=== PATIENT | female | born 1955 | race Hispanic/Latino ===

== ENCOUNTER 2022-06-18 21:05 | Emergency (ER) | payer MEDICARE ==
[~2022-06-18] VITALS: Ht 157.5 cm; Wt 87.1 kg
[2022-06-18 21:50] LABS: BASOPHILS % (AUTO) 0.2 % (0.0-5.0); EOSINOPHILS % (AUTO) 0.9 % (0.0-8.0); HEMATOCRIT 36.5 % (36-48); LYMPHOCYTES % (AUTO) 33.2 % (21.0-51.0); MEAN CORPUSCULAR HEMOGLOBIN 28.5 pg (27.0-33.0); MEAN CORPUSCULAR HGB CONC 32.6 g/dL (32.0-36.0); MEAN CORPUSCULAR VOLUME 87.5 fL (79-99); MONOCYTES % (AUTO) 8.5 % (3.0-13.0); PLATELET COUNT (AUTO) 249 K/uL (130-400); RED BLOOD CELL COUNT(AUTO) 4.17 MIL/uL (4.00-5.50); RED CELL DISTRIBUTION WIDTH 15.6 % (11.0-15.5); WHITE BLOOD COUNT (AUTO) 8.6 K/uL (4.8-10.8)
[2022-06-18 21:53] LABS: APPEARANCE,URINE CLEAR (CLEAR); BILIRUBIN,URINE NEGATIVE (NEGATIVE); COLOR,URINE YELLOW (YELLOW); GLUCOSE, URINE (UA) NEGATIVE (NEGATIVE); KETONES,URINE NEGATIVE (NEGATIVE); LEUKOCYTE ESTERASE ,URINE NEGATIVE (NEGATIVE); NITRATE,URINE NEGATIVE (NEGATIVE); OCCULT BLOOD,URINE NEGATIVE (NEGATIVE); PROTEIN,URINE NEGATIVE (NEGATIVE); UROBILINOGEN,URINE 0.2 mg/dL (0.2-1.0)
[2022-06-18 22:00] LABS: CREATININE 1.2 mg/dL (0.5-1.5); POTASSIUM 4.2 mmol/L (3.5-5.1)
[2022-06-18] MEDS ORDERED: KETOROLAC 30MG VIAL (30MG/ML) IVP ONE (22:00)
[2022-06-18 22:04] LABS: ALBUMIN 3.4 g/dL (3.5-5.0); TOTAL PROTEIN, SERUM 7.8 g/dL (6.0-8.3)
[2022-06-18] MEDS ORDERED: IOHEXOL 350 MG/ML 100ML INFUS..BTL IV ONE (22:24)
[2022-06-19 00:06] VITALS: BP 142/58
[2022-06-19] MEDS ORDERED: NAPR500T6 PO (00:22)
== END 2022-06-19 00:34 | disposition home or self-care (01) ==
LOC: EDH 21:05
DX: N83.202 Unspecified ovarian cyst, left side (principal); R10.2 Pelvic and perineal pain; E11.9 Type 2 diabetes mellitus without complications; K21.9 Gastro-esophageal reflux disease without esophagitis; E78.00 Pure hypercholesterolemia, unspecified; I10 Essential (primary) hypertension; Z98.890 Other specified postprocedural states
CPT/HCPCS: 99285; 74177; 96374; 76856; 80053; 85025; 81003; 36415; J1885; Q9967

== ENCOUNTER 2022-08-05 15:07 | Emergency (ER) | payer MEDICARE ==
[~2022-08-05] VITALS: Ht 154.9 cm; Wt 88.5 kg
[~2022-08-05 15:07] MED LIST: NAPR500T6 PO
[2022-08-05 15:28] VITALS: BP 126/47
[2022-08-05] MEDS ORDERED: TRAM1TAB2 PO (16:05)
== END 2022-08-05 17:04 | disposition home or self-care (01) ==
LOC: EDH 15:07
DX: S82.101A Unspecified fracture of upper end of right tibia, initial encounter for closed fracture (principal); E11.9 Type 2 diabetes mellitus without complications; E78.00 Pure hypercholesterolemia, unspecified; I10 Essential (primary) hypertension; E66.01 Morbid (severe) obesity due to excess calories; Z68.36 Body mass index [BMI] 36.0-36.9, adult; Z79.1 Long term (current) use of non-steroidal anti-inflammatories (NSAID); W18.39XA Other fall on same level, initial encounter; Y93.89 Activity, other specified; Y92.89 Other specified places as the place of occurrence of the external cause; Y99.8 Other external cause status
CPT/HCPCS: 29505; 73562

== ENCOUNTER 2023-02-21 16:12 | Observation (INO) | payer MEDICARE ==
[~2023-02-21] VITALS: Ht 160 cm; Wt 86.9 kg
[~2023-02-21 16:12] MED LIST changes: +TRAM1TAB2 PO
[2023-02-21 16:40] LABS: BASOPHILS % (AUTO) 0.4 % (0.0-5.0); EOSINOPHILS % (AUTO) 0.6 % (0.0-8.0); HEMATOCRIT 33.1 % (36-48); LYMPHOCYTES % (AUTO) 29.2 % (21.0-51.0); MEAN CORPUSCULAR HEMOGLOBIN 27.9 pg (27.0-33.0); MEAN CORPUSCULAR HGB CONC 31.7 g/dL (32.0-36.0); MEAN CORPUSCULAR VOLUME 87.8 fL (79-99); MONOCYTES % (AUTO) 20.1 % (3.0-13.0); NEUTROPHILS % (AUTO) 49.3 % (40.0-77.0); PLATELET COUNT (AUTO) 196 K/uL (130-400); RED BLOOD CELL COUNT(AUTO) 3.77 MIL/uL (4.00-5.50); RED CELL DISTRIBUTION WIDTH 15.1 % (11.0-15.5); WHITE BLOOD COUNT (AUTO) 4.9 K/uL (4.8-10.8)
[2023-02-21 16:52] LABS: CREATININE 1.7 mg/dL (0.5-1.5); POTASSIUM 4.3 mmol/L (3.5-5.1)
[2023-02-21 16:58] LABS: ALBUMIN 2.8 g/dL (3.5-5.0); TOTAL PROTEIN, SERUM 6.5 g/dL (6.0-8.3)
[2023-02-21] MEDS ORDERED: 0.9%NACL 1000ML 1,000 ML IV ONE (19:00)
[2023-02-21] MEDS: 0.9%NACL 1000ML 1,000 ML IV SCH (19:30)
[2023-02-21] MEDS ORDERED: DEXTROSE 50%-WATER 50 ML DISP.SYRIN IV PRN (19:30)
[2023-02-21] MEDS ORDERED: 0.9%NACL 1000ML 1,000 ML IV SCH (19:30)
[2023-02-21] MEDS ORDERED: GLUCAGON 1MG KIT 1 MG ML IM PRN (19:30)
[2023-02-21] MEDS ORDERED: ACETAMINOPHEN 325 MG TAB PO PRN ×2 (19:30)
[2023-02-21] MEDS ORDERED: ONDANSETRON 4MG INJ IV PRN (19:30)
[2023-02-21] MEDS ORDERED: NITROGLYCERIN 0.4 MG SL TAB SL PRN (19:30)
[2023-02-21 20:08] LABS: MAGNESIUM 2.2 mg/dL (1.80-2.40); THYROID STIMULATING HORMONE 1.47 uIU/mL (0.36-3.74)
[2023-02-21 20:16] LABS: HEMOGLOBIN A1C 6.5 % (4.0-6.0)
[2023-02-21 20:17] LABS: APPEARANCE,URINE CLEAR (CLEAR); BILIRUBIN,URINE NEGATIVE (NEGATIVE); COLOR,URINE LIGHT-YELLOW (YELLOW); GLUCOSE, URINE (UA) NEGATIVE (NEGATIVE); KETONES,URINE NEGATIVE (NEGATIVE); LEUKOCYTE ESTERASE ,URINE NEGATIVE Leu/uL (NEGATIVE); NITRATE,URINE NEGATIVE (NEGATIVE); OCCULT BLOOD,URINE NEGATIVE (NEGATIVE); PROTEIN,URINE 20 mg/dL (NEGATIVE); UROBILINOGEN,URINE 0.2 mg/dL (0.2-1.0)
[2023-02-21 20:43] LABS: BACTERIA,URINE RARE /HPF (None Seen); RBC,URINE 0-1 /HPF (0-1); SQUAMOUS EPITHELIAL CELL,UR FEW /HPF (0-2)
[2023-02-21] MEDS: ASPIRIN 81 MG EC TAB PO SCH (20:43)
[2023-02-21] MEDS: INSULIN HUMULIN R 100 UNIT/ML 3ML SQ SCH ×2 (20:44→21:00)
[2023-02-21] MEDS ORDERED: OMEG-61 PO (22:01)
[2023-02-21] MEDS ORDERED: HYDR25TA PO (22:01)
[2023-02-21] MEDS ORDERED: SOLI5 PO (22:01)
[2023-02-21] MEDS ORDERED: ESOM40CA PO (22:01)
[2023-02-21] MEDS ORDERED: AEC81 PO (22:01)
[2023-02-21] MEDS ORDERED: DILT360C29 PO (22:01)
[2023-02-21] MEDS ORDERED: LISI40TA9 PO (22:01)
[2023-02-21] MEDS ORDERED: CALC-1220 PO (22:01)
[2023-02-21] MEDS ORDERED: ATOR40TA69 PO (22:01)
[2023-02-21] MEDS ORDERED: PREG75 PO (22:01)
[2023-02-21] MEDS ORDERED: FERR-72 PO (22:01)
[2023-02-21] MEDS ORDERED: METF-446 PO (22:03)
[2023-02-21] MEDS ORDERED: METF-444 PO (22:03)
[2023-02-21] MEDS ORDERED: INSU100I35 SQ ×2 (22:19)
[2023-02-21 22:30] VITALS: BP 158/64
[2023-02-21] MEDS: FAMOTIDINE 20MG TAB PO SCH (22:36)
[2023-02-22 04:31] VITALS: BP 136/50
[2023-02-22] MEDS: INSULIN HUMULIN R 100 UNIT/ML 3ML SQ SCH ×4 (05:02→20:18)
[2023-02-22] MEDS: 0.9%NACL 1000ML 1,000 ML IV SCH ×2 (05:02→17:14)
[2023-02-22 06:00] LABS: BASOPHILS % (AUTO) 0.2 % (0.0-5.0); EOSINOPHILS % (AUTO) 1.2 % (0.0-8.0); LYMPHOCYTES % (AUTO) 31.5 % (21.0-51.0); MEAN CORPUSCULAR HEMOGLOBIN 28.2 pg (27.0-33.0); MEAN CORPUSCULAR HGB CONC 31.9 g/dL (32.0-36.0); MEAN CORPUSCULAR VOLUME 88.3 fL (79-99); MONOCYTES % (AUTO) 15.6 % (3.0-13.0); NEUTROPHILS % (AUTO) 51.3 % (40.0-77.0); PLATELET COUNT (AUTO) 190 K/uL (130-400); RED BLOOD CELL COUNT(AUTO) 3.51 MIL/uL (4.00-5.50); RED CELL DISTRIBUTION WIDTH 15.1 % (11.0-15.5); WHITE BLOOD COUNT (AUTO) 4.9 K/uL (4.8-10.8)
[2023-02-22 06:32] LABS: ALBUMIN 2.6 g/dL (3.5-5.0); CREATININE 1.3 mg/dL (0.5-1.5); MAGNESIUM 1.9 mg/dL (1.80-2.40); POTASSIUM 3.7 mmol/L (3.5-5.1); TOTAL PROTEIN, SERUM 6.1 g/dL (6.0-8.3)
[2023-02-22 07:41] VITALS: BP 147/62
[2023-02-22] MEDS: ASPIRIN 81 MG EC TAB PO SCH (08:37)
[2023-02-22] MEDS: FAMOTIDINE 20MG TAB PO SCH (08:37)
[2023-02-22] MEDS: ENOXAPARIN SODIUM 30 MG/0.3 ML SQ SCH (08:38)
[2023-02-22 11:19] VITALS: BP 174/69
[2023-02-22 16:18] VITALS: BP 158/66
[2023-02-22] MEDS ORDERED: DILT360C29 PO (16:22)
[2023-02-22] MEDS: AMLODIPINE 5 MG TAB PO SCH (17:22)
[2023-02-22 19:50] VITALS: BP 158/56
[2023-02-22] MEDS ORDERED: ATORVASTATIN 40 MG TABLET PO SCH (21:00)
[2023-02-22] MEDS ORDERED: INSULIN HUMULIN 70/30 100 UNIT/ML 3ML SQ SCH (21:00)
[2023-02-22 23:16] VITALS: BP 146/57
[2023-02-23] MEDS: 0.9%NACL 1000ML 1,000 ML IV SCH ×3 (00:30→11:35)
[2023-02-23 03:43] VITALS: BP 149/60
[2023-02-23 06:03] LABS: BASOPHILS % (AUTO) 0.2 % (0.0-5.0); HEMATOCRIT 33.1 % (36-48); MEAN CORPUSCULAR HEMOGLOBIN 27.7 pg (27.0-33.0); MEAN CORPUSCULAR VOLUME 86.6 fL (79-99); MONOCYTES % (AUTO) 15.3 % (3.0-13.0); NEUTROPHILS % (AUTO) 45.3 % (40.0-77.0); PLATELET COUNT (AUTO) 225 K/uL (130-400); RED BLOOD CELL COUNT(AUTO) 3.82 MIL/uL (4.00-5.50); WHITE BLOOD COUNT (AUTO) 4.1 K/uL (4.8-10.8)
[2023-02-23] MEDS: INSULIN HUMULIN R 100 UNIT/ML 3ML SQ SCH ×4 (06:05→16:35)
[2023-02-23 06:19] LABS: ALBUMIN 2.8 g/dL (3.5-5.0); CREATININE 0.9 mg/dL (0.5-1.5); POTASSIUM 3.4 mmol/L (3.5-5.1); TOTAL PROTEIN, SERUM 6.5 g/dL (6.0-8.3)
[2023-02-23] MEDS ORDERED: REGADENOSON 0.4 MG/5 ML PF SYG IVP SCH (07:30)
[2023-02-23 07:59] VITALS: BP 147/71
[2023-02-23] MEDS ORDERED: SOLIFENACIN SUCCINATE 5 MG PO SCH (09:00)
[2023-02-23] MEDS ORDERED: ASPIRIN 81 MG EC TAB PO SCH (09:00)
[2023-02-23] MEDS ORDERED: LISINOPRIL 40 MG TABLET PO SCH (09:00)
[2023-02-23] MEDS ORDERED: FISH OIL 1000 MG/CAP PO SCH (09:00)
[2023-02-23] MEDS ORDERED: INSULIN HUMULIN 70/30 100 UNIT/ML 3ML SQ SCH (09:00)
[2023-02-23] MEDS ORDERED: DILTIAZEM 180MG SR CAP PO SCH (09:00)
[2023-02-23] MEDS ORDERED: PREGABALIN 75 MG CAPSULE PO SCH (09:00)
[2023-02-23] MEDS ORDERED: CA 600MG+VIT D 400 UNIT TAB 1 TAB TABLET PO SCH (09:00)
[2023-02-23] MEDS ORDERED: FERROUS SULFATE 325 MG TABLET.DR PO SCH (09:00)
[2023-02-23] MEDS ORDERED: AMLODIPINE 5 MG TAB PO SCH (09:00)
[2023-02-23] MEDS ORDERED: HYDROCHLOROTHIAZIDE 25 MG TABLET PO SCH (09:00)
[2023-02-23] MEDS: ASPIRIN 81 MG EC TAB PO SCH (09:55)
[2023-02-23] MEDS: AMLODIPINE 5 MG TAB PO SCH (09:55)
[2023-02-23] MEDS: FAMOTIDINE 20MG TAB PO SCH (09:55)
[2023-02-23] MEDS: ENOXAPARIN SODIUM 30 MG/0.3 ML SQ SCH (09:56)
[2023-02-23 11:56] VITALS: BP 155/70
[2023-02-23 15:53] VITALS: BP 159/74
[2023-02-23] MEDS ORDERED: KCL 20 MEQ ERTAB PO PRN (17:00)
[2023-02-24] MEDS ORDERED: DILTIAZEM HCL PO SCH (09:00)
== END 2023-02-23 18:20 | disposition home or self-care (01) ==
LOC: EDH 16:12 → EDHIP 19:09 → 3DH 22:22
PROVIDERS: ADMIT Internal Medicine; ATTEND Internal Medicine
DX: R07.89 Other chest pain (principal); Z20.822 Contact with and (suspected) exposure to COVID-19; E11.65 Type 2 diabetes mellitus with hyperglycemia; E87.1 Hypo-osmolality and hyponatremia; K21.9 Gastro-esophageal reflux disease without esophagitis; N83.209 Unspecified ovarian cyst, unspecified side; E66.9 Obesity, unspecified; E78.00 Pure hypercholesterolemia, unspecified; I11.9 Hypertensive heart disease without heart failure; I49.1 Atrial premature depolarization; Z79.899 Other long term (current) drug therapy
CPT/HCPCS: 96361 ×3; 99285; 83036; 84443; 82550 ×3; 83735 ×2; 83874 ×3; 84484 ×5; 80053 ×3; 85025 ×3; 82948 ×10; 81001; 36415 ×3; 87635; 71045; 93005 ×2; 96372 ×2; 80061; 93306; 82947; 93017; 78452; 96374; J1815 ×5; G0378 ×44; J7030; J1650 ×2; J7070; J2785; A9500 ×2